=== PATIENT | female | born 1960 | race Caucasian/White ===

== ENCOUNTER 2022-05-29 10:11 | Emergency (ER) | payer OTHER ==
[~2022-05-29] VITALS: Ht 177.8 cm; Wt 69.4 kg
[2022-05-29 10:25] VITALS: BP 126/69
[2022-05-29 10:40] LABS: URINE BILIRUBIN - DIPSTICK NEGATIVE (NEGATIVE); URINE BLOOD DIPSTICK TRACE-INTACT (NEGATIVE); URINE COLOR YELLOW; URINE GLUCOSE - DIPSTICK NEGATIVE (NEGATIVE); URINE KETONE NEGATIVE (NEGATIVE); URINE LEUK ESTERASE TRACE (NEGATIVE); URINE PH 5.5 (4.5-8.0); URINE PROTEIN - DIPSTICK NEGATIVE (NEG-TRACE); URINE SPECIFIC GRAVITY 1.025; URINE UROBILINOGEN - DIPSTICK 0.2 E.U./dL (0.2)
[2022-05-29 10:41] LABS: URINE NITRITE - DIPSTICK NEGATIVE (Negative)
[2022-05-29] MEDS ORDERED: CEFDINIR300 MG PO (11:03)
[2022-05-29] MEDS ORDERED: OMNICEF250 MG/5 M PO (11:18)
== END 2022-05-29 11:15 | disposition home or self-care (01) | DRG 696 ==
LOC: ED 10:11
PROVIDERS: Family Medicine
DX: R31.9 Hematuria, unspecified (principal); R30.0 Dysuria; Z86.16 Personal history of COVID-19